=== PATIENT | female | born 1985 | race Caucasian/White ===

== ENCOUNTER 2024-05-23 10:18 | Emergency (ER) | payer BC, SELFPAY ==
[2024-05-23 10:23] VITALS: BP 109/74
--- NOTE | 2024-05-23 11:03 | ED.GENMED ---
History of Present Illness
General
Chief Complaint: Allergic Reaction
Source: patient
Exam Limitations: none
Time Seen by Provider: 05/23/24 10:35
History of Present Illness
History of Present Illness:
38 year old female with history of RA, on humira, presents with onset of generalized body rash that woke her up from sleep at 2 AM this morning. She then got her self to the bathroom and states she passed out while sitting on the toilet. She woke
up and vomited. She tried to take Benadryl however she vomited this back up. She felt her tongue was swollen she was having trouble breathing and her throat was swollen. She also noted diffuse itchy rash. She denies any new exposures. No known
fever. She states at times she gets presentations of her rheumatoid arthritis. This was different however as it involved her respiratory and GI systems as well. Currently she states the rash is improved however she still feels that her throat is
swollen. She is slightly nauseous and lightheaded as well. No chest pain. No other at this time
Phy Exam
Physical Exam
Physical Exam:
General: Well-appearing female no acute respiratory distress
HEENT: Normocephalic mucosa dry tongue is slightly swollen
Heart: Regular rate and rhythm no murmurs
Lungs: Clear no wheeze or rales
Skin is warm no obvious rash or lesions extremities: No cyanosis
Course
Orders/Labs/Results
Orders:
Orders
05/23/24 10:54
Dexamethasone Sod Phosphate [Decadron] 10 mg IV NOW STA
Diphenhydramine [Benadryl] 25 mg IV NOW STA
Famotidine [Pepcid] 20 mg IV NOW STA
05/23/24 11:21
Complete Blood Count/With Diff Urgent
Comprehensive Metabolic Panel Urgent
05/23/24 13:02
0.9% Sodium Chloride 1000 ml [Nss] 1,000 ml IV BOLUS
Abnormal Lab Results
05/23/24
11:21
RBC 4.01 L 10^6/uL
(4.20-5.40)
Hct 35.9 L %
(37.0-47.0)
Abs Immat Gran (auto) 0.1 H 10^3/uL
(0-0.05)
Absolute Neuts (auto) 9.1 H 10^3/uL
(1.4-6.5)
Absolute Lymphs (auto) 0.8 L 10^3/uL
(1.2-3.4)
Immature Gran % 0.6 H %
(0-0.5)
Neutrophils % 86.6 H %
(42.2-75.2)
Lymphocytes % 8.0 L %
(20.5-51.1)
Total Protein 6.0 L g/dl
(6.3-8.2)
05/23/24 11:21
05/23/24 11:21
Vital Signs
Initial and Last Documented VS:
Initial Vital Signs
Temp Pulse Resp BP Pulse Ox
98.9 F 75 18 109/74 98
05/23/24 10:23 05/23/24 10:23 05/23/24 10:23 05/23/24 10:23 05/23/24 10:23
Last Documented Vital Signs
Temp Pulse Resp BP Pulse Ox
98.9 F 66 17 113/74 96
05/23/24 10:23 05/23/24 14:00 05/23/24 14:00 05/23/24 14:00 05/23/24 14:00
MDM/Problems Addressed
Differential Diagnosis Includes:
Allergic reaction. Patient not on any ERROL inhibitors. Etiology of reaction point unclear. Currently no obvious respiratory distress but patient still has symptoms in her throat. Basic labs pending. Will order Decadron Pepcid and Benadryl.
*Critical Care Note
Total Time (30-74mins, 75-104mins- exclusive of procedures): Not Applicable
Update Note
Update Note:
Patient reevaluated feeling much better after Decadron Pepcid and Benadryl. Suspect underlying allergic reaction. EpiPen was provided given her symptoms of trouble breathing and vomiting.
ED Attending Note
-
Portions of this chart may have been created with voice recognition software.� Occasional wrong word or��sound alike� substitutions may have occurred due to the inherent limitations of voice recognition software.
Discharge Plan
Departure
Patient Disposition: Home (Routine Discharge)
Date of Disposition: 05/23/24
Time of Disposition: 14:09
Patient with high blood pressure during this ER visit?: No
Discharge Problem:
Allergic reaction
Prescriptions:
New
epinephrine [EpiPen] 0.3 mg/0.3 mL auto-injector
0.3 mg IM ONCE PRN (Reason: anaphylaxis) Qty: 2 0RF
No Action
multivitamin 1 EACH tablet
1 ea PO DAILY
prednisone 5 MG tablet
20 mg PO DAILY
Patient Comments:
20mg first 3 days
15mg for 3 days
10mg for 3 days
5mg for 3 days
Once every 3 months
iron, carbonyl [Iron Chews] 15 MG tablet,chewable
90 mg PO DAILY
methotrexate sodium 2.5 MG tablet
2.5 mg PO WEEKLY
nitroglycerin [Nitro-Bid] 1 INCH/GRAM ointment
1 inch topical PRN PRN (Reason: poor circulation)
leucovorin calcium 5 MG tablet
10 mg PO DAILY
folic acid 1 MG tablet
1 mg PO DAILY
etanercept [Enbrel] 50 MG/ML syringe
50 mg SQ WEEKLY
cholecalciferol (vitamin D3) 2,000 UNIT tablet
2,000 unit PO DAILY
L.acidoph, paracasei,B. lactis 1 EACH capsule
2 ea PO DAILY
docusate sodium 100 MG capsule
100 mg PO BID Qty: 28 0RF
oxycodone-acetaminophen 5 MG/325 MG tablet
1 tab PO Q4HPRN PRN (Reason: severe pain) Qty: 25 0RF
ibuprofen 600 MG tablet
600 mg PO Q4HPRN PRN (Reason: moderate pain) Qty: 30 0RF
Rx Instructions:
do not take on empty stomach
Referrals:
NONE,* [Family Provider] -
Activity Restrictions/Additional Instructions:
You may continue Benadryl as needed. Return if worse. A prescription for EpiPen was sent to your pharmacy. Follow-up with your revenue specialist otherwise
Interventions
Interventions:
*Risk Screen - Suicide Last Done: 05/23/24 10:27
*General Assessment Last Done: 05/23/24 10:27
*Neglect/Abuse Screening Last Done: 05/23/24 10:27
*ED COVID-19 Vaccine History Last Done: 05/23/24 10:48
*Nursing Disposition Last Done: 05/23/24 14:18
ED- Cardiac Assessment Last Done: 05/23/24 10:48
ED- Pulmonary Assessment Last Done: 05/23/24 10:48
ED-Skin Assessment Last Done: 05/23/24 10:48
Discharge Date and Time
Discharge Date/Time: 05/23/24 14:20
Print Language: PERSIAN
[2024-05-23] MEDS: DECADRON 10 MG IV (11:20)
[2024-05-23] MEDS: BENADRYL 25 MG IV (11:20)
[2024-05-23] MEDS: PEPCID 20 MG IV (11:20)
[2024-05-23 11:26] VITALS: BP 115/78
[2024-05-23 11:46] LABS: % Basophils 0.5 % (0-2); % Eosinophils 0.1 % (0-6); % Immature Granulocytes 0.6 % (0-0.5); % Monocytes 4.2 % (1.7-9.3); % Neutrophils 86.6 % (42.2-75.2); Absolute Basophils 0.1 10^3/uL (0-0.2); Absolute Immature Granulocytes 0.1 10^3/uL (0-0.05); Absolute Lymphocytes 0.8 10^3/uL (1.2-3.4); Absolute Monocytes 0.4 10^3/uL (0.1-0.6); Absolute Neutrophils 9.1 10^3/uL (1.4-6.5); Hematocrit 35.9 % (37.0-47.0); Hemoglobin 12.4 g/dL (12.0-16.0); Mean Corp Hgb Conc. 34.5 g/dL (33.0-37.0); Mean Corpuscular Hgb 30.9 pg (27.0-31.0); Mean Corpuscular Volume 89.5 fL (81.0-99.0); Mean Platelet Volume 9.4 fL (7.4-10.4); Nucleated Red Blood Cells % 0 %; Platelet Count 279 10^3/uL (130-400); Red Blood Cell Count 4.01 10^6/uL (4.20-5.40); Red Cell Dist. Width 13.2 % (11.5-14.5); White Blood Cell Count 10.5 10^3/uL (4.8-10.8)
[2024-05-23 11:57] LABS: ALT (SGPT) 13 U/L (0-35); AST (SGOT) 24 U/L (14-36); Albumin 3.7 g/dl (3.5-5.0); Alkaline Phosphatase 49 U/L (38-126); Blood Urea Nitrogen 15 mg/dl (7-17); Calcium 9.2 mg/dl (8.4-10.2); Carbon Dioxide 26 mmol/L (22-30); Glucose 85 mg/dl (70-99); Total Bilirubin 0.6 mg/dl (0.2-1.3); eGFR > 60.00
[2024-05-23 12:00] VITALS: BP 107/65
[2024-05-23 12:28] LABS: Chloride 105 mmol/L (98-107); Potassium 4.5 mmol/L (3.5-5.1); Sodium 137 mmol/L (135-145)
[2024-05-23 13:00] VITALS: BP 120/77
[2024-05-23] MEDS: NSS 1000 IV (13:08)
[2024-05-23 14:00] VITALS: BP 113/74
== END 2024-05-23 14:20 | disposition home or self-care (01) ==
LOC: EMR 10:18
PROVIDERS: Physician Assistant; EMERGENCY PHYSICIAN Student in an Organized Health Care Education/Training Program
DX: T78.40XA Allergy, unspecified, initial encounter (principal); X58.XXXA Exposure to other specified factors, initial encounter; M06.9 Rheumatoid arthritis, unspecified
CPT/HCPCS: 99283; 96374; 96375; 96361; 80053; 85025

== ENCOUNTER 2024-10-18 03:21 | Emergency (ER) | payer BC, SELFPAY ==
[2024-10-18 03:25] VITALS: BP 125/78; BMI 25.5
[2024-10-18] MEDS: BENADRYL 50 MG IV (03:38)
[2024-10-18] MEDS: ATIVAN 1 MG IV (04:02)
[2024-10-18 04:04] LABS: % Basophils 0.9 % (0-2); % Immature Granulocytes 0.3 % (0-0.5); % Lymphocytes 30.7 % (20.5-51.1); % Monocytes 7.7 % (1.7-9.3); % Neutrophils 59.4 % (42.2-75.2); Absolute Basophils 0.1 10^3/uL (0-0.2); Absolute Eosinophils 0.1 10^3/uL (0-0.7); Absolute Lymphocytes 1.8 10^3/uL (1.2-3.4); Absolute Monocytes 0.4 10^3/uL (0.1-0.6); Absolute Neutrophils 3.4 10^3/uL (1.4-6.5); Hematocrit 39.4 % (37.0-47.0); Hemoglobin 12.9 g/dL (12.0-16.0); Mean Corp Hgb Conc. 32.7 g/dL (33.0-37.0); Mean Corpuscular Hgb 30.1 pg (27.0-31.0); Mean Corpuscular Volume 92.1 fL (81.0-99.0); Mean Platelet Volume 9.2 fL (7.4-10.4); Nucleated Red Blood Cells % 0 %; Platelet Count 289 10^3/uL (130-400); Red Blood Cell Count 4.28 10^6/uL (4.20-5.40); Red Cell Dist. Width 13.3 % (11.5-14.5); White Blood Cell Count 5.7 10^3/uL (4.8-10.8)
[2024-10-18 04:11] LABS: ALT (SGPT) 23 U/L (0-35); AST (SGOT) 43 U/L (14-36); Albumin 4.4 g/dl (3.5-5.0); Alkaline Phosphatase 39 U/L (38-126); Blood Urea Nitrogen 7 mg/dl (7-17); Carbon Dioxide 21 mmol/L (22-30); Chloride 111 mmol/L (98-107); Estimated Creatinine Clearance 93 ml/min; Glucose 79 mg/dl (70-99); Potassium 4.3 mmol/L (3.5-5.1); Sodium 146 mmol/L (135-145); Total Bilirubin 0.3 mg/dl (0.2-1.3); Total Protein 7.2 g/dl (6.3-8.2); eGFR > 60.00
--- NOTE | 2024-10-18 05:33 | ED.GENMED ---
History of Present Illness
<Blair Jimenez DO - Last Filed: 10/18/24 05:33>
General
Chief Complaint: Musculo-Skeletal Complaint
Source: patient and ambulance crew
Exam Limitations: altered mental status
Time Seen by Provider: 10/18/24 03:25
Nursing documentation reviewed up to this point in time: agreed with
History of Present Illness
History of Present Illness:
39-year-old female brought in by EMS with generalized uncontrollable movements throughout her body. She states that she has never experienced these before. She is able to hold a conversation with breaks for these movements.
Phy Exam
<Carlos Alberto Mtz MD - Last Filed: 10/19/24 06:38>
Physical Exam
Physical Exam:
*
Course
<Blair Jimenez DO - Last Filed: 10/18/24 05:33>
Orders/Labs/Results
Orders:
Orders
10/18/24 03:31
Diphenhydramine [Benadryl] 50 mg .ROUTE .STK-MED ONE
10/18/24 03:37
Diphenhydramine [Benadryl] 50 mg IV NOW STA
Diphenhydramine [Benadryl] 50 mg 0.9% Sodium Chloride 50 ml [Nss] 50 ml IV ONCE
10/18/24 03:39
Alcohol Urgent
CMP [Comprehensive Metabolic Panel] Urgent
Complete Blood Count/With Diff Urgent
10/18/24 04:00
Lorazepam [Ativan] 2 mg .ROUTE .STK-MED ONE
10/18/24 04:02
Lorazepam [Ativan] 1 mg IV NOW STA
10/18/24 05:32
CT Head W/o Iv Contrast Urgent
Comment:
Reason For Exam: ams
10/18/24 07:04
Add On- LAB Urgent
Tests Added?: alcohol
Abnormal Lab Results
10/18/24
03:39
MCHC 32.7 L g/dL
(33.0-37.0)
Sodium 146 H mmol/L
(135-145)
Chloride 111 H mmol/L
(98-107)
Carbon Dioxide 21 L mmol/L
(22-30)
AST 43 H U/L
(14-36)
10/18/24 03:39
10/18/24 03:39
Vital Signs
Initial and Last Documented VS:
Initial Vital Signs
Temp Pulse Resp BP Pulse Ox
98.4 F 118 18 125/78 98
10/18/24 03:25 10/18/24 03:25 10/18/24 03:25 10/18/24 03:25 10/18/24 03:25
Last Documented Vital Signs
Temp Pulse Resp BP Pulse Ox
98.4 F 101 20 106/70 96
10/18/24 03:25 10/18/24 08:45 10/18/24 08:45 10/18/24 08:45 10/18/24 07:30
<Carlos Alberto Mtz MD - Last Filed: 10/19/24 06:38>
Orders/Labs/Results
Orders:
Orders
10/18/24 03:31
Diphenhydramine [Benadryl] 50 mg .ROUTE .STK-MED ONE
10/18/24 03:37
Diphenhydramine [Benadryl] 50 mg IV NOW STA
Diphenhydramine [Benadryl] 50 mg 0.9% Sodium Chloride 50 ml [Nss] 50 ml IV ONCE
10/18/24 03:39
Alcohol Urgent
CMP [Comprehensive Metabolic Panel] Urgent
Complete Blood Count/With Diff Urgent
10/18/24 04:00
Lorazepam [Ativan] 2 mg .ROUTE .STK-MED ONE
10/18/24 04:02
Lorazepam [Ativan] 1 mg IV NOW STA
10/18/24 05:32
CT Head W/o Iv Contrast Urgent
Comment:
Reason For Exam: ams
10/18/24 07:04
Add On- LAB Urgent
Tests Added?: alcohol
Abnormal Lab Results
10/18/24
03:39
MCHC 32.7 L g/dL
(33.0-37.0)
Sodium 146 H mmol/L
(135-145)
Chloride 111 H mmol/L
(98-107)
Carbon Dioxide 21 L mmol/L
(22-30)
AST 43 H U/L
(14-36)
10/18/24 03:39
10/18/24 03:39
Vital Signs
Initial and Last Documented VS:
Initial Vital Signs
Temp Pulse Resp BP Pulse Ox
98.4 F 118 18 125/78 98
10/18/24 03:25 10/18/24 03:25 10/18/24 03:25 10/18/24 03:25 10/18/24 03:25
Last Documented Vital Signs
Temp Pulse Resp BP Pulse Ox
98.4 F 101 20 106/70 96
10/18/24 03:25 10/18/24 08:45 10/18/24 08:45 10/18/24 08:45 10/18/24 07:30
<Carlos Alberto Mtz MD - Last Filed: 10/19/24 06:38>
*Critical Care Note
Total Time (30-74mins, 75-104mins- exclusive of procedures): Not Applicable
<Carlos Alberto Mtz MD - Last Filed: 10/19/24 06:38>
Update Note
Update Note:
7:50 AM: Patient with complete resolution of symptoms when reevaluated. At this time, patient feels comfortable going home, and will follow-up with her primary care physician for reevaluation. Patient states that her will return from work
later today, and as such she will not be alone upon discharge.
ED Attending Note
<Blair Jimenez, - Last Filed: 10/18/24 05:33>
-
Portions of this chart may have been created with voice recognition software.� Occasional wrong word or��sound alike� substitutions may have occurred due to the inherent limitations of voice recognition software.
Discharge Plan
Departure
Patient Disposition: Home (Routine Discharge)
Date of Disposition: 10/18/24
Time of Disposition: 07:50
Patient with high blood pressure during this ER visit?: Yes
Discharge Problem:
Tardive dyskinesia
Instructions: Tardive dyskinesia
Prescriptions:
No Action
multivitamin 1 EACH tablet
1 ea PO DAILY
prednisone 5 MG tablet
20 mg PO DAILY
Patient Comments:
20mg first 3 days
15mg for 3 days
10mg for 3 days
5mg for 3 days
Once every 3 months
iron, carbonyl [Iron Chews] 15 MG tablet,chewable
90 mg PO DAILY
methotrexate sodium 2.5 MG tablet
2.5 mg PO WEEKLY
nitroglycerin [Nitro-Bid] 1 INCH/GRAM ointment
1 inch topical PRN PRN (Reason: poor circulation)
leucovorin calcium 5 MG tablet
10 mg PO DAILY
folic acid 1 MG tablet
1 mg PO DAILY
etanercept [Enbrel] 50 MG/ML syringe
50 mg SQ WEEKLY
cholecalciferol (vitamin D3) 2,000 UNIT tablet
2,000 unit PO DAILY
L.acidoph,paracasei,B.animalis 1 EACH capsule
2 ea PO DAILY
docusate sodium 100 MG capsule
100 mg PO BID Qty: 28 0RF
oxycodone-acetaminophen 5 MG/325 MG tablet
1 tab PO Q4HPRN PRN (Reason: severe pain) Qty: 25 0RF
ibuprofen 600 MG tablet
600 mg PO Q4HPRN PRN (Reason: moderate pain) Qty: 30 0RF
Rx Instructions:
do not take on empty stomach
epinephrine [EpiPen] 0.3 mg/0.3 mL auto-injector
0.3 mg IM ONCE PRN (Reason: anaphylaxis) Qty: 2 0RF
Referrals:
UNKNOWN - PT DOES,NOT KNOW [Family Provider] -
Activity Restrictions/Additional Instructions:
As discussed, please follow-up with your primary care physician for reevaluation next week. Please return to ED with recurrent symptoms.
Interventions
Interventions:
*Risk Screen - Suicide Last Done: 10/18/24 03:25
*General Assessment Last Done: 10/18/24 03:25
*Neglect/Abuse Screening Last Done: 10/18/24 03:25
ED- Fall Risk Assessment Last Done: 10/18/24 03:40
*Nursing Disposition Last Done: 10/18/24 08:45
ED-Musculoskeletal Assessment Last Done: 10/18/24 03:40
Discharge Date and Time
Discharge Date/Time: 10/18/24 08:46
Print Language: [id number]
[2024-10-18 07:26] VITALS: BP 106/68
[2024-10-18 07:27] VITALS: BP 106/58
[2024-10-18 07:37] LABS: Alcohol 192 mg/dl
[2024-10-18 08:45] VITALS: BP 106/70
== END 2024-10-18 08:46 | disposition home or self-care (01) ==
LOC: EMR 03:21
PROVIDERS: EMERGENCY PHYSICIAN Student in an Organized Health Care Education/Training Program
DX: G24.01 Drug induced subacute dyskinesia (principal); R03.0 Elevated blood-pressure reading, without diagnosis of hypertension
CPT/HCPCS: 99284; 96374; 96375; 70450; 80053; 82077; 85025